=== PATIENT | female | born 1960 | race Caucasian/White ===

== ENCOUNTER 2016-12-02 22:13 | Inpatient (IN) | payer OTHER ==
[~2016-12-02] VITALS: Ht 160 cm; Wt 64.9 kg
--- NOTE | 2016-12-02 23:45 | NUR ---
ADMIT NOTE Received pt from ER to the floor with a diagnosis of ACUTE CHOLELITHIASIS. Admission process initiated. patient oriented to pain management, safety and call light-teach back done. Addendum: 12/03/16 at 0122 by Lidia Mari RN PT. IS A DIRECT ADMIT, NOT ADMITTED FROM ER.
[2016-12-02 23:51] VITALS: BP 119/72; PULSE 109; RESP 18; TEMP 97.1; O2SAT 97
[2016-12-03] VITALS: BP 138/80; PULSE 60; RESP 16; TEMP 97.8; O2SAT 92
--- NOTE | 2016-12-03 00:19 | NUR ---
CONSULTATION PAGED REASON FOR CONSULTATION:ACUTE CHOLELITHIASIS WAS CONSULT CALLED?Y PERSON WHO WAS NOTIFIED:BRAYAN CONSULTING PHYSICIAN:NIKKI HERNANDEZ CLOCK AND WATCH ASSEMBLER SPECIALTY:GI CLOCK AND WATCH ASSEMBLER PHONE NUMBER:[phone]
--- NOTE | 2016-12-03 00:24 | NUR ---
CONSULTATION PAGED REASON FOR CONSULTATION:ACUTE CHOLELITHIASIS WAS CONSULT CALLED?Y PERSON WHO WAS NOTIFIED:BRAYAN CONSULTING PHYSICIAN:JAMI PRESSLEY IC ENGINEER SPECIALTY:SURGEON IC ENGINEER PHONE NUMBER:[phone]
[2016-12-03] MEDS ORDERED: MORPHINE 4 MG/ML INJ. SYRINGE IVP PRN (00:30)
[2016-12-03] MEDS ORDERED: ACETAMINOPHEN 325 MG SUPP.RECT RC PRN (00:30)
[2016-12-03] MEDS ORDERED: INSULIN REGULAR, HUMAN 100 UNITS/ML, 10 ML VIAL (novoLIN R) SUBCUT PRN (00:30)
[2016-12-03] MEDS ORDERED: ONDANSETRON HCL 4 MG/2 ML VIAL IVP PRN (00:30)
--- NOTE | 2016-12-03 00:30 | NUR ---
ACCUCHECK BLOOD YAVNS=894, NO COVERAGE REQUIRED.
[2016-12-03] MEDS ORDERED: PIPERACILLIN/TAZOBACTAM 3.375 GM/VIAL (ZOSYN) IV ONE (00:32)
[2016-12-03] MEDS ORDERED: SIMV40TA2 PO (01:10)
[2016-12-03] MEDS ORDERED: GLU500 PO (01:10)
[2016-12-03] MEDS ORDERED: LOSA100T11 PO (01:10)
[2016-12-03] MEDS: NACL 0.9% 1,000 ML IV SCH ×3 (01:23→20:28)
[2016-12-03] MEDS: PIPERACILLIN/TAZO 3.375/DEX-IS 50 ML IV SCH ×4 (02:22→20:28)
--- NOTE | 2016-12-03 02:30 | NUR ---
RN ROUNDS PT. RESTING QUIETLY, VITAL SIGNS STABLE, NO DISTRESS NOTED, DENIES PAIN, CALL LIGHT WITHIN REACH.
--- NOTE | 2016-12-03 04:00 | NUR ---
RN ROUNDS PT. RESTING QUIETLY, VITAL SIGNS STABLE, NO DISTRESS NOTED, DENIES PAIN, CALL LIGHT WITHIN REACH.
[2016-12-03 05:06] VITALS: BP 110/61; PULSE 77; RESP 19; TEMP 98.8; O2SAT 96
--- NOTE | 2016-12-03 06:00 | NUR ---
RN ROUNDS PT. RESTING QUIETLY, VITAL SIGNS STABLE, NO DISTRESS NOTED, DENIES PAIN, CALL LIGHT WITHIN REACH.
--- NOTE | 2016-12-03 06:45 | NUR ---
CLOSING NOTES, ACCUCHECK BLOOD GIEQD=789, NO COVERAGE REQUIRED. IV ACCESS PATENT AND BENIGN. ALL ANTICIPATED NEEDS MET, KEPT COMFORTABLE.
--- NOTE | 2016-12-03 08:00 | NUR ---
Patient A/ox4, speaks [place]ian and [place]. States to have mild abdominal pain. Breathing is unlabored and even. IV on right arm, #22, infused with NS at 100ml/hr. Family at bedside. Call light in place, bed at lowest position, will continue to monitor.
--- NOTE | 2016-12-03 10:02 | NUR ---
Patient is resting, no signs of distress noted.
[2016-12-03 10:04] LABS: BASOPHILS % (AUTO) 0.3 % (0.0-2.0); EOSINOPHILS % (AUTO) 0.5 % (0.0-4.0); HEMATOCRIT 39.6 % (36-48); HEMOGLOBIN 13.3 g/dL (12.0-16.0); LYMPHOCYTES # (AUTO) 0.7 K/uL (1.0-5.5); MEAN CORPUSCULAR HEMOGLOBIN 29 pg (27-31); MEAN CORPUSCULAR HGB CONC 34 % (32-36); MEAN CORPUSCULAR VOLUME 87 fL (79.0-98.0); MONOCYTES # (AUTO) 0.5 K/uL (0.0-1.0); MONOCYTES % (AUTO) 6.1 % (1.7-9.3); NEUTROPHILS # (AUTO) 6.3 K/uL (1.8-7.7); NEUTROPHILS % (AUTO) 83.1 % (40.0-70.0); PLATELET COUNT (AUTO) 167 K/uL (130-430); RED BLOOD CELL COUNT(AUTO) 4.54 MIL/uL (4.2-6.2); RED CELL DISTRIBUTION WIDTH 12.5 % (9.0-15.0); WHITE BLOOD COUNT (AUTO) 7.5 K/uL (4.8-10.8)
[2016-12-03 10:31] LABS: CALCIUM 8.9 mg/dL (8.4-11.0); CREATININE 0.82 mg/dL (0.55-1.30); POTASSIUM 3.6 mmol/L (3.5-5.1)
[2016-12-03 10:36] LABS: ALBUMIN 3.9 g/dL (3.4-4.8); TOTAL BILIRUBIN 0.9 mg/dL (0.0-1.0); TOTAL PROTEIN, SERUM 7.4 g/dL (6.4-8.3)
[2016-12-03 11:46] VITALS: BP 139/67; PULSE 87; RESP 16; TEMP 98.3; O2SAT 99
--- NOTE | 2016-12-03 12:22 | NUR ---
Patient is resting, no c/o pain at this time. Blood sugar 134, no coverage needed.
--- NOTE | 2016-12-03 14:34 | NUR ---
PAGED DR BRIGHT FOR ORDERS. SPOKE WITH WILD
--- NOTE | 2016-12-03 14:51 | NUR ---
patient to [facility]. No signs of distress noted during transport.
--- NOTE | 2016-12-03 15:49 | NUR ---
Patient has returned from [facility]. V/S stable no signs of distress noted.
[2016-12-03] MEDS ORDERED: ACETAMINOPHEN 650 MG SUPP.RECT RC PRN (16:00)
[2016-12-03 16:43] VITALS: BP 136/73; PULSE 86; RESP 16; TEMP 98.2; O2SAT 94
--- NOTE | 2016-12-03 18:10 | NUR ---
Patient BS at 123. No coverage needed.
--- NOTE | 2016-12-03 19:30 | NUR ---
Initial Note Patient in bed at this time resting, respirations even and unlabored. No acute distress noted at this time. Denies any abdominal pain at this time. Call light in hand. Fall and safety precautions in place. Will continue to monitor.
[2016-12-03 20:00] VITALS: BP 125/72; PULSE 81; RESP 18; TEMP 97.6; O2SAT 96
--- NOTE | 2016-12-03 21:00 | NUR ---
IV RE-INSERTION: Complaining of pain to IV site. Restarted on left forearm. Successful after 1 attempts. Will observe for any signs of infiltration.
--- NOTE | 2016-12-03 22:35 | NUR ---
RN ROUNDS Patient in bed at this time resting, respirations even and unlabored. Patient denies any pain or discomfort at this time. Call light in hand. Fall and safety precautions in place. Will continue to monitor.
[2016-12-04] VITALS (7 sets, daily range): BP systolic 106–154; BP diastolic 72–86; PULSE 67–94; RESP 11–18; TEMP 96.8–98.7; O2SAT 94–100
--- NOTE | 2016-12-04 00:50 | NUR ---
RN ROUNDS Patient in bed at this time resting at this time. Patient denies any pain or discomfort at this time. Call light in hand. Fall and safety precautions in place. Will continue to monitor.
[2016-12-04] MEDS: PIPERACILLIN/TAZO 3.375/DEX-IS 50 ML IV SCH ×4 (03:26→20:26)
--- NOTE | 2016-12-04 03:37 | NUR ---
RN ROUNDS Patient in bed at this time resting with eyes closed. Respirations even and unlabored. No acute distress noted at this time. Patient in no apparent pain or discomfort at this time, no facial grimacing noted. Call light in hand. Fall and safety precautions in place. Will continue to monitor.
[2016-12-04] MEDS: NACL 0.9% 1,000 ML IV SCH ×2 (05:33→15:43)
--- NOTE | 2016-12-04 06:47 | NUR ---
Closing Note Patient in bed at this time resting, respirations even and unlabored. All due meds given, all needs met. Iv site patent with no signs or symptoms of infiltration noted. Call light in hand. Fall and safety precautions in place. Will endorse to day shift nurse.
--- NOTE | 2016-12-04 07:30 | NUR ---
Patient A/ox4, speaks Macedonian and Finnish. States to have very mild abdominal pain. NPO at this time. Breathing is unlabored and even. IV on right arm, #22, infused with NS at 100ml/hr. Family at bedside. Call light in place, bed at lowest position, will continue to monitor.
[2016-12-04 07:58] LABS: BASOPHILS % (AUTO) 0.9 % (0.0-2.0); EOSINOPHILS # (AUTO) 0.2 K/uL (0.0-0.4); EOSINOPHILS % (AUTO) 5.1 % (0.0-4.0); HEMATOCRIT 35.5 % (36-48); HEMOGLOBIN 12.2 g/dL (12.0-16.0); LYMPHOCYTES # (AUTO) 1.1 K/uL (1.0-5.5); LYMPHOCYTES % (AUTO) 22.1 % (20.5-51.5); MEAN CORPUSCULAR HEMOGLOBIN 29 pg (27-31); MEAN CORPUSCULAR HGB CONC 34 % (32-36); MEAN CORPUSCULAR VOLUME 85 fL (79.0-98.0); MONOCYTES # (AUTO) 0.6 K/uL (0.0-1.0); MONOCYTES % (AUTO) 11.7 % (1.7-9.3); NEUTROPHILS % (AUTO) 60.2 % (40.0-70.0); PLATELET COUNT (AUTO) 150 K/uL (130-430); RED BLOOD CELL COUNT(AUTO) 4.17 MIL/uL (4.2-6.2); RED CELL DISTRIBUTION WIDTH 12.5 % (9.0-15.0); WHITE BLOOD COUNT (AUTO) 4.9 K/uL (4.8-10.8)
[2016-12-04 08:28] LABS: ALBUMIN 3.3 g/dL (3.4-4.8); CALCIUM 8.8 mg/dL (8.4-11.0); CREATININE 0.63 mg/dL (0.55-1.30); POTASSIUM 3.7 mmol/L (3.5-5.1); TOTAL BILIRUBIN 0.9 mg/dL (0.0-1.0); TOTAL PROTEIN, SERUM 6.5 g/dL (6.4-8.3)
--- NOTE | 2016-12-04 10:04 | NUR ---
PATIENT IS AWAKE AND ALERT. NO APPARENT DISTRESS. RESTING COMFORTABLY IN BED. IS AT BEDSIDE. BED IN LOW POSITION, BRAKE ON, AND CALL LIGHT WITHIN REACH. WILL CONTINUE TO MONITOR.
--- NOTE | 2016-12-04 12:20 | NUR ---
Patient is resting, no signs of distress noted. Will continue to monitor.
--- NOTE | 2016-12-04 14:18 | NUR ---
Patient is at rest, no signs of distress noted.
--- NOTE | 2016-12-04 16:00 | NUR ---
Patient began eating full liquid diet. No signs of distress noted.
--- NOTE | 2016-12-04 16:05 | NUR ---
Patient ate a jello and drank OJ. No signs of distress nor discomfort noted.
--- NOTE | 2016-12-04 18:00 | NUR ---
Patient BS 141. No coverage needed.
--- NOTE | 2016-12-04 19:20 | NUR ---
Initial Note Patient in bed at this time resting, respirations even and unlabored. No acute distress noted at this time. IV site patent with no signs or symptoms of infiltration noted. Denies any abdominal pain at this time. Call light in hand. Fall and safety precautions in place. Will continue to monitor.
--- NOTE | 2016-12-04 22:00 | NUR ---
RN ROUNDS Patient in bed at this time resting, respirations even and unlabored. No acute distress noted at this time. Patient denies any pain of discomfort at this time. Patient tolerating IVF well and infusing as ordered. Call light in hand. Fall and safety precautions in place. Will continue to monitor.
--- NOTE | 2016-12-05 00:19 | NUR ---
RN ROUNDS Patient in bed at this time resting, respirations even and unlabored. Vital signs stable. Patient is aware that she is to be NPO for surgery. Denies any pain or discomfort at this time. Call light in hand. Fall and safety precautions in place. Will continue to monitor.
[2016-12-05 00:31] VITALS: BP 133/66; PULSE 76; RESP 16; TEMP 97.8; O2SAT 98
[2016-12-05] MEDS: PIPERACILLIN/TAZO 3.375/DEX-IS 50 ML IV SCH ×4 (01:32→20:29)
[2016-12-05] MEDS: NACL 0.9% 1,000 ML IV SCH ×2 (01:35→22:30)
--- NOTE | 2016-12-05 03:35 | NUR ---
RN ROUNDS Patient in bed at this time resting, respirations even and unlabored. No acute distress noted at this time. Patient denies any pain or discomfort at this time. Call light in hand. Fall and safety precautions in place. Will continue to monitor.
[2016-12-05 03:38] VITALS: BP 118/68; PULSE 66; RESP 16; TEMP 97.7; O2SAT 97
[2016-12-05 04:22] LABS: BILIRUBIN,URINE NEGATIVE (NEGATIVE); BLOOD, URINE 1+ (NEGATIVE); CLARITY/URINE CLEAR (CLEAR); COLOR,URINE YELLOW (YELLOW); GLUCOSE,URINE NEGATIVE (NEGATIVE); KETONES,URINE 2+ (NEGATIVE); LEUKOCYTE ESTERASE ,URINE NEGATIVE (NEGATIVE); NITRITE, URINE NEGATIVE (NEGATIVE); PH,URINE 5.5 (5.0-8.0); PROTEIN URINE NEGATIVE (NEGATIVE); UROBILINOGEN,URINE 0.2 (0.2-1.0)
[2016-12-05 04:40] LABS: WBC,URINE 0-3 /HPF (0-3)
[2016-12-05 04:41] LABS: BACTERIA,URINE FEW /HPF (None Seen); MUCUS,URINE None Seen /LPF (None Seen)
--- NOTE | 2016-12-05 07:20 | NUR ---
initial rounds: pt on bed resting. stable. i.v. access patent. Discussed plan of care. call light within reach. report received at bedside.
[2016-12-05 07:32] LABS: INR 0.9 (0.8-1.2); PROTHROMBIN TIME 9.3 SECS (9.5-12.5)
[2016-12-05 07:35] LABS: BASOPHILS % (AUTO) 0.8 % (0.0-2.0); EOSINOPHILS # (AUTO) 0.2 K/uL (0.0-0.4); EOSINOPHILS % (AUTO) 3.7 % (0.0-4.0); HEMATOCRIT 36.2 % (36-48); HEMOGLOBIN 12.3 g/dL (12.0-16.0); LYMPHOCYTES # (AUTO) 1.2 K/uL (1.0-5.5); LYMPHOCYTES % (AUTO) 20.1 % (20.5-51.5); MEAN CORPUSCULAR HEMOGLOBIN 30 pg (27-31); MEAN CORPUSCULAR HGB CONC 34 % (32-36); MEAN CORPUSCULAR VOLUME 87 fL (79.0-98.0); MONOCYTES # (AUTO) 0.5 K/uL (0.0-1.0); MONOCYTES % (AUTO) 8.8 % (1.7-9.3); NEUTROPHILS # (AUTO) 4.2 K/uL (1.8-7.7); NEUTROPHILS % (AUTO) 66.6 % (40.0-70.0); PLATELET COUNT (AUTO) 153 K/uL (130-430); RED BLOOD CELL COUNT(AUTO) 4.16 MIL/uL (4.2-6.2); RED CELL DISTRIBUTION WIDTH 12.3 % (9.0-15.0); WHITE BLOOD COUNT (AUTO) 6.1 K/uL (4.8-10.8)
[2016-12-05 07:51] LABS: ALBUMIN 3.4 g/dL (3.4-4.8); BILIRUBIN,DIRECT 0.2 mg/dL (0.0-0.3); CREATININE 0.53 mg/dL (0.55-1.30); POTASSIUM 3.4 mmol/L (3.5-5.1); TOTAL BILIRUBIN 0.6 mg/dL (0.0-1.0); TOTAL PROTEIN, SERUM 6.8 g/dL (6.4-8.3)
[2016-12-05 08:00] VITALS: BP 128/67; PULSE 83; RESP 16; TEMP 97.6
--- NOTE | 2016-12-05 10:22 | NUR ---
rounds: pt on bed. no distress noted. remains npo for surgery.
[2016-12-05 11:35] VITALS: BP 131/79; PULSE 74; RESP 19; TEMP 97.4; O2SAT 99
--- NOTE | 2016-12-05 11:53 | NUR ---
blood sugar: accu check 117. no insulin coverage and pt is NPO.
--- NOTE | 2016-12-05 12:17 | NUR ---
rounds: pt on bed resting. no distress noted. remains npo.
--- NOTE | 2016-12-05 12:53 | NUR ---
O.R. patient wheeled to O.R. via hospital bed by O.R. staff. for surgery.
[2016-12-05 14:00] VITALS: BP 126/76; PULSE 76; RESP 19; TEMP 96.4; O2SAT 99
[2016-12-05] MEDS ORDERED: GLYCOPYRROLATE 0.2 MG/ML VIAL ONE (14:00)
[2016-12-05] MEDS ORDERED: NEOSTIGMINE METHYLSULFATE 1 MG/ML, 10 ML VIAL ONE (14:00)
[2016-12-05] MEDS ORDERED: fentaNYL CITRATE 250 MCG/5 ML AMP ONE (14:00)
[2016-12-05] MEDS ORDERED: MORPHINE 2 MG/ML INJ. SYRINGE IVP PRN ×2 (14:00)
[2016-12-05] MEDS ORDERED: BUPIVACAINE /EPINEPHRINE/PF 0.25% 30 ML VIAL INJ ONE (14:00)
[2016-12-05] MEDS ORDERED: ROCURONIUM BROMIDE 10 MG/ML (ZEMURON) ONE (14:00)
[2016-12-05] MEDS ORDERED: DESFLURANE 15 MIN GAS INH ONE (14:00)
[2016-12-05] MEDS ORDERED: LR 1,000 ML IV.SOLN IV ONE (14:00)
[2016-12-05] MEDS ORDERED: LR 1,000 ML IV SCH (14:00)
[2016-12-05] MEDS ORDERED: MIDAZOLAM HCL 5 MG/5 ML VIAL ONE (14:00)
[2016-12-05] MEDS ORDERED: PROPOFOL 200MG/ 20ML VIAL (DIPRIVAN) IV ONE (14:00)
[2016-12-05] MEDS ORDERED: METOCLOPRAMIDE HCL 10 MG/2 ML VIAL IVP PRN (14:00)
[2016-12-05] MEDS ORDERED: ONDANSETRON HCL 4 MG/2 ML VIAL ONE (14:00)
[2016-12-05] MEDS: MORPHINE 2 MG/ML INJ. SYRINGE IVP PRN ×2 (14:50→15:05)
[2016-12-05] MEDS ORDERED: MORPHINE 4 MG/ML INJ. SYRINGE ONE (15:12)
--- NOTE | 2016-12-05 15:30 | NUR ---
Transfer from O.R. Patient sleeping. V/S taken WNL. Received report from O.R. nurse. TRINY in placed the R side of abdomen. 4 small incision with steri strips and dressing. No active bleeding. SCD in placed. Dr. Glasgow aware.
--- NOTE | 2016-12-05 16:00 | NUR ---
rounds: pt still sleeping. no distress noted. family at bedside.
--- NOTE | 2016-12-05 17:41 | NUR ---
BLOOD SUGAR: accu check done 160mg/dl. insulin coverage not given. pt still npo.
--- NOTE | 2016-12-05 19:30 | NUR ---
closing notes: pt on bed resting. stable. needs attended. TRINY intact. No active bleeding from abdominal incision. SCD in placed. call light within reach. report given at bedside.
[2016-12-05 20:00] VITALS: BP 145/77; PULSE 96; RESP 18; TEMP 97.7; O2SAT 96
--- NOTE | 2016-12-05 20:00 | NUR ---
Initial PM Note Pt is fully AAO x4. Assessment done and no acute distress noted. IVF is infusing well in LFA. Skin is warm and dry to touch. No signs or symptoms of hypoglycemia or hyperglycemia noted. Fall precautions are in place. Pt was instructed to call for assistance as needed and pt verbalized understanding. Call light is with pt and bed alarm is on. Bed is in the lowest and locked positions. Abd lap sites dressings are dry with old blood stains noted. TRINY to bulb suction is in place with small amount of bloody drainage noted.
--- NOTE | 2016-12-05 20:29 | NUR ---
Pain Medication Morphine 4mg was given IV for c/o abd incisional pain with relief.
--- NOTE | 2016-12-05 20:38 | NUR ---
Nausea Medication Zofran 4mg was given IV for c/o nausea with relief. No emesis noted.
--- NOTE | 2016-12-05 22:30 | NUR ---
Rounds Pt is resting comfortably in bed. IVF is infusing well in LFA. Call light is with pt and bed alarm is on.
--- NOTE | 2016-12-05 23:40 | NUR ---
Blood Sugar Accucheck 118. Skin remains warm and dry to touch. No c/o discomfort.
[2016-12-06 00:28] VITALS: BP 125/63; PULSE 97; RESP 18; TEMP 98.6; O2SAT 96
--- NOTE | 2016-12-06 01:00 | NUR ---
Rounds Pt is sleeping comfortably in bed and no resp distress noted.
[2016-12-06] MEDS: PIPERACILLIN/TAZO 3.375/DEX-IS 50 ML IV SCH ×4 (02:50→22:43)
--- NOTE | 2016-12-06 03:00 | NUR ---
Rounds Pt is sleeping without any distress noted. IVF is infusing well. Fall precautions are in place.
[2016-12-06 04:31] VITALS: BP 128/82; PULSE 86; RESP 18; TEMP 98.6; O2SAT 97
[2016-12-06] MEDS: NACL 0.9% 1,000 ML IV SCH ×3 (04:33→16:49)
--- NOTE | 2016-12-06 04:50 | NUR ---
Rounds Pt is resting comfortably in bed. Fall precautions are in place.
[2016-12-06 06:13] LABS: BASOPHILS % (AUTO) 0.4 % (0.0-2.0); EOSINOPHILS % (AUTO) 0.3 % (0.0-4.0); HEMATOCRIT 34.7 % (36-48); HEMOGLOBIN 11.7 g/dL (12.0-16.0); LYMPHOCYTES # (AUTO) 1.2 K/uL (1.0-5.5); LYMPHOCYTES % (AUTO) 12.8 % (20.5-51.5); MEAN CORPUSCULAR HEMOGLOBIN 29 pg (27-31); MEAN CORPUSCULAR HGB CONC 34 % (32-36); MEAN CORPUSCULAR VOLUME 87 fL (79.0-98.0); MONOCYTES # (AUTO) 0.9 K/uL (0.0-1.0); MONOCYTES % (AUTO) 9.6 % (1.7-9.3); NEUTROPHILS # (AUTO) 7.3 K/uL (1.8-7.7); NEUTROPHILS % (AUTO) 76.9 % (40.0-70.0); PLATELET COUNT (AUTO) 178 K/uL (130-430); RED BLOOD CELL COUNT(AUTO) 4.01 MIL/uL (4.2-6.2); RED CELL DISTRIBUTION WIDTH 12.5 % (9.0-15.0); WHITE BLOOD COUNT (AUTO) 9.4 K/uL (4.8-10.8)
[2016-12-06 06:18] LABS: ALBUMIN 3.2 g/dL (3.4-4.8); CALCIUM 8.6 mg/dL (8.4-11.0); CREATININE 0.47 mg/dL (0.55-1.30); POTASSIUM 3.2 mmol/L (3.5-5.1); TOTAL BILIRUBIN 0.7 mg/dL (0.0-1.0); TOTAL PROTEIN, SERUM 6.6 g/dL (6.4-8.3)
--- NOTE | 2016-12-06 06:24 | NUR ---
Closing Note Pt is awake and resting comfortably in bed. No c/o pain or discomfort at this time. IVF is infusing well in LFA. All pt's needs were attended to. No fall or injury noted this shift. Will endorse to day shift nurse. Addendum: 12/06/16 at 0632 by Sherrie Duke RN Accucheck 98 this AM and no Insulin coverage needed. Skin remains warm and dry to touch.
[2016-12-06 08:00] VITALS: BP 138/62; PULSE 62; RESP 18; TEMP 97.6; O2SAT 96
--- NOTE | 2016-12-06 08:00 | NUR ---
NOTE PT RESTING IN BED. NO SOB/RESP DISTRESS OR PAIN/DISCOMFORT WAS NOTED AT THIS TIME. 3 LAP SITES ON ABDOMEN - DSG CDI. 4TH SITE WITH TRINY DRAIN. IVF'S INFUSING WELL THROUGH LEFT HAND IV SITE. CALL LIGHT WITHIN REACH/
--- NOTE | 2016-12-06 09:00 | NUR ---
NOTE DR BRIGHT AND DR CARUSO DID ROUNDS AND ORDERS WERE GIVEN. NO NEEDS NOTED CALL LIGHT WITHIN REACH. Addendum: 12/06/16 at 1031 by Joy Maciel RN DR CARUSO DID REMOVE TRINY DRAIN ON RIGHT SIDE OF ABDOMEN.
[2016-12-06 11:48] VITALS: BP 145/76; PULSE 65; RESP 16; TEMP 97; O2SAT 97
--- NOTE | 2016-12-06 12:00 | NUR ---
NOTE PT HAS BEEN AMBULATING IN THE ROOM AND IN HALLWAY WITH BY HER SIDE. PT HAS STEADY GAIT, PAIN IN ABDOMEN FROM SURGERY PRESENT. NO SEVERE PAIN PER PT AT THIS TIME. PT AMBULATES AND GETS IN AND OOB FREQUENTLY NEEDED. NO NEEDS NOTED AT THIS TIME. CALL LIGHT WITHIN REACH.
[2016-12-06] MEDS ORDERED: POTASSIUM CHLORIDE 20 MEQ TAB.PRT.SR PO ONE (13:15)
--- NOTE | 2016-12-06 14:15 | NUR ---
NOTE PT AMBULATING IN HALLWAY WITH STEADY GAIT AT THIS TIME. DENIES ANY NEEDS AT THIS TIME. PT ABLE TO PASS A LITTLE FLATUS AND GAS PAIN IN ABDOMEN IS STILL PRESSING AT THIS TIME.
[2016-12-06 15:41] VITALS: BP 132/76; PULSE 82; RESP 19; TEMP 97.2; O2SAT 97
--- NOTE | 2016-12-06 15:54 | NUR ---
Nutrition Update Marcial Scale 18 noted Pt was admitted with cholelithiasis Diet: soft (low fiber/bland), clear liquid (two active orders) BMI: 25.5 kg/m2 RD to follow up per nutrition care standards.
--- NOTE | 2016-12-06 18:30 | NUR ---
NOTE PT RESTING IN BED. PT'S FAMILY HAS BEEN AT BEDSIDE THROUGHOUT THE SHIFT. NO SOB/RESP DISTRESS OR PAIN/DISCOMFORT NOTED AT THIS TIME. PT ENC TO SIT UP IN BS CHAIR AND AMBULATE IN ROOM OR HALLWAY TOLERATED AT THIS TIME. CALL LIGHT WITHIN REACH.
[2016-12-06 20:30] VITALS: BP 135/71; PULSE 85; RESP 18; TEMP 97.5; O2SAT 96
--- NOTE | 2016-12-06 21:12 | NUR ---
Patient awake out of bed ambulating verbally indicative , skin dry warm on room air 02 SAT 97 % chest movement symmetrical unlabored / .
[2016-12-06 21:14] VITALS: Ht 160 cm; Wt 64.9 kg
[2016-12-06] MEDS: IBUPROFEN 800 MG TABLET PO PRN (22:43)
--- NOTE | 2016-12-06 23:31 | NUR ---
MOTRIN 800 MG PO given for general pain 12/12 & helpful , resting this hour .
[2016-12-07] VITALS (8 sets, daily range): BP systolic 119–141; BP diastolic 73–83; PULSE 55–86; RESP 16–20; TEMP 97.3–98.9; O2SAT 92–98
--- NOTE | 2016-12-07 00:32 | NUR ---
Hourly Rounding patient awake alert assist as needed resting this hour / .
--- NOTE | 2016-12-07 00:33 | NUR ---
BSG @ 165 mg dl no coverage needed this hour / .
[2016-12-07] MEDS: PIPERACILLIN/TAZO 3.375/DEX-IS 50 ML IV SCH ×4 (04:03→21:11)
--- NOTE | 2016-12-07 04:46 | NUR ---
Patient resting this hour bed to low position call berumen with patient assist as needed / .
[2016-12-07] MEDS: NACL 0.9% 1,000 ML IV SCH ×2 (06:23→15:06)
[2016-12-07 06:52] LABS: ALBUMIN 3.4 g/dL (3.4-4.8); BASOPHILS % (AUTO) 0.6 % (0.0-2.0); CALCIUM 9.2 mg/dL (8.4-11.0); CREATININE 0.56 mg/dL (0.55-1.30); EOSINOPHILS # (AUTO) 0.1 K/uL (0.0-0.4); HEMATOCRIT 37.8 % (36-48); HEMOGLOBIN 12.9 g/dL (12.0-16.0); LYMPHOCYTES # (AUTO) 1.1 K/uL (1.0-5.5); LYMPHOCYTES % (AUTO) 18.6 % (20.5-51.5); MEAN CORPUSCULAR HEMOGLOBIN 30 pg (27-31); MEAN CORPUSCULAR HGB CONC 34 % (32-36); MEAN CORPUSCULAR VOLUME 87 fL (79.0-98.0); MONOCYTES # (AUTO) 0.8 K/uL (0.0-1.0); MONOCYTES % (AUTO) 12.8 % (1.7-9.3); NEUTROPHILS # (AUTO) 4.1 K/uL (1.8-7.7); PLATELET COUNT (AUTO) 193 K/uL (130-430); RED BLOOD CELL COUNT(AUTO) 4.34 MIL/uL (4.2-6.2); RED CELL DISTRIBUTION WIDTH 12.5 % (9.0-15.0); TOTAL BILIRUBIN 1.2 mg/dL (0.0-1.0); TOTAL PROTEIN, SERUM 7.2 g/dL (6.4-8.3); WHITE BLOOD COUNT (AUTO) 6.1 K/uL (4.8-10.8)
--- NOTE | 2016-12-07 08:09 | NUR ---
AM ROUNDS Patient received, alert awake and oriented x4. VSS. Patient denies pain at this time. IV site patent intact and infusing fluids as ordered. Abdominal dressings noted, CDI. Bowel sounds active within all four quadrants. Patient able to ambulate to bathroom, gait steady. Patient encouraged to call for assistance, patient verbalized understanding. Plan of care discussed, patient verbalized understanding. Safety and fall precautions in place, call light within reach. Will continue to monitor.
--- NOTE | 2016-12-07 10:14 | NUR ---
ROUNDS Patient awake sitting up in bed. Denies pain at this time. IVF infusing as ordered. No further needs. Will continue to monitor. Safety and fall precautions in place, call light within reach.
--- NOTE | 2016-12-07 12:30 | NUR ---
ROUNDS Late entry due to patient care. Patient sitting up in bed, tolerating lunch well. Denies pain at this time. Patient has no further needs. IVF infusing as ordered. Will continue to monitor. Safety and fall precautions in place.
--- NOTE | 2016-12-07 14:52 | NUR ---
ROUNDS Patient sitting in chair at bedside, denies pain at this time. No further needs. Will continue to monitor. Safety and fall precautions in place, call light within reach. Family at bedside.
[2016-12-07] MEDS ORDERED: POTASSIUM CHLORIDE 20 MEQ TAB.PRT.SR PO ONE (16:00)
--- NOTE | 2016-12-07 16:30 | NUR ---
ROUNDS Late entry due to patient care. Patient ambulated to bathroom, gait steady. Voiding without difficulty. Patient denies pain at this time. No further needs. Will continue to monitor.
--- NOTE | 2016-12-07 18:16 | NUR ---
CLOSING NOTE Patient resting in bed at this time. IVF infusing as ordered. Patient denies pain at this time. Abdominal dressing CDI. Patient tolerating dinner well. No further needs, all needs met throughout shift. Safety and fall precautions in place, call light within reach. Will endorse to next shift.
--- NOTE | 2016-12-07 18:19 | NUR ---
paged for Dr Dubois, dialed . s/w [facility].
--- NOTE | 2016-12-07 19:15 | NUR ---
change of shift.initial pt's assessment.pt.presents s/p surgery:lap cholecystetomy.iv fluids on hold.i am 2 re-establish an iv access.area tender.no c/o pain,nausea.pt.ambualtory.
--- NOTE | 2016-12-07 20:00 | NUR ---
pt.assessed.v/s assessed.values w/in normal limits.pt.was assisted 2 restroom returned 2 bed safely. call light placed w/in pt's reach.
--- NOTE | 2016-12-07 21:00 | NUR ---
pt.requested pain medication:pt.mentioned no morphine.motrin:800mg tab 1 po administered.iv access line re-established: location rt.forearm.call light w/in pt's reach.
[2016-12-07] MEDS: IBUPROFEN 800 MG TABLET PO PRN (21:14)
--- NOTE | 2016-12-07 22:00 | NUR ---
pt.assessed.pt.states motrin effective.iv fluids infusing:pt.states iv access feels better.lt.forearm iv access removed.gauze pad placed @site.no other request@this hour.
--- NOTE | 2016-12-08 | NUR ---
pt.assessed.blood glucose assessed:141mg/dl:no insulin coverage.no c/o pain.no other request@this hour. call light placed w/iin pt's reach.
[2016-12-08 00:44] VITALS: BP 132/75; PULSE 66; RESP 16; TEMP 98.4; O2SAT 97
--- NOTE | 2016-12-08 02:00 | NUR ---
pt.assessed.pt.presents quiescent affect;calm,asleep.no distress/discomfort manifested.call light w/in pt's reach.
[2016-12-08] MEDS: PIPERACILLIN/TAZO 3.375/DEX-IS 50 ML IV SCH ×3 (02:35→15:45)
--- NOTE | 2016-12-08 04:00 | NUR ---
pt.assessed.pt.assisted 2 the restroom.returned 2 the bed safely.lap cholecystectomy dsg x4 site changed. call light placed w/in pt's reach.
[2016-12-08 04:19] VITALS: BP 126/70; PULSE 60; RESP 16; TEMP 98; O2SAT 93
--- NOTE | 2016-12-08 06:00 | NUR ---
pt.assessed.pt.education:pt.taught 2 perform breathing excercises:2 avoid pna onset.blood glucose assessed: 122mg/dl.no insulin coverage.no request@this hour.
[2016-12-08 06:57] LABS: BASOPHILS # (AUTO) 0.1 K/uL (0.0-0.2); BASOPHILS % (AUTO) 0.9 % (0.0-2.0); EOSINOPHILS # (AUTO) 0.2 K/uL (0.0-0.4); EOSINOPHILS % (AUTO) 2.6 % (0.0-4.0); HEMATOCRIT 36.6 % (36-48); HEMOGLOBIN 12.4 g/dL (12.0-16.0); LYMPHOCYTES # (AUTO) 1.1 K/uL (1.0-5.5); LYMPHOCYTES % (AUTO) 16.7 % (20.5-51.5); MEAN CORPUSCULAR HEMOGLOBIN 29 pg (27-31); MEAN CORPUSCULAR HGB CONC 34 % (32-36); MEAN CORPUSCULAR VOLUME 87 fL (79.0-98.0); MONOCYTES # (AUTO) 0.7 K/uL (0.0-1.0); MONOCYTES % (AUTO) 10.5 % (1.7-9.3); NEUTROPHILS # (AUTO) 4.5 K/uL (1.8-7.7); NEUTROPHILS % (AUTO) 69.3 % (40.0-70.0); PLATELET COUNT (AUTO) 196 K/uL (130-430); RED BLOOD CELL COUNT(AUTO) 4.23 MIL/uL (4.2-6.2); WHITE BLOOD COUNT (AUTO) 6.6 K/uL (4.8-10.8)
[2016-12-08 07:19] LABS: ALBUMIN 3.2 g/dL (3.4-4.8); CALCIUM 9.2 mg/dL (8.4-11.0); CREATININE 0.61 mg/dL (0.55-1.30); POTASSIUM 3.7 mmol/L (3.5-5.1); TOTAL BILIRUBIN 1.2 mg/dL (0.0-1.0)
[2016-12-08 08:17] VITALS: BP 128/67; PULSE 100; RESP 18; TEMP 97; O2SAT 95
--- NOTE | 2016-12-08 08:18 | NUR ---
AM ROUNDS Patient received, alert awake and oriented x4. VSS. Patient denies pain at this time. IVF infusing as ordered. Abdominal dressings CDI. Bowel sounds WNL. Patient tolerating breakfast well. Patient able to ambulate to bathroom, gait steady voiding without difficulty. No further needs at this time. Plan of care discussed, patient verbalized understanding. Safety and fall precautions in place, call light within reach. Will continue to monitor.
--- NOTE | 2016-12-08 10:46 | NUR ---
ROUNDS Patient ambulating around room. Denies pain at this time. Dr. Womack at bedside. No further needs. Will continue to monitor.
--- NOTE | 2016-12-08 12:12 | NUR ---
ROUNDS Patient ambulating at this time. Denies pain. Blood glucose 151, no insulin coverage needed. Safety and fall precautions in place, call light within reach. Will continue to monitor.
[2016-12-08 12:30] VITALS: BP 136/55; PULSE 75; RESP 16; TEMP 97.6; O2SAT 96
--- NOTE | 2016-12-08 14:00 | NUR ---
ROUNDS Late entry due to patient care. Patient taken down for HIDA scan. Stable condition.
[2016-12-08 16:11] VITALS: BP 134/59; PULSE 78; RESP 17; TEMP 97.9; O2SAT 95
--- NOTE | 2016-12-08 17:58 | NUR ---
Spoke with Dr. Womack and Dr. Kwong regarding patients discharge. Both MDs cleared patient for discharge. Orders noted.
[2016-12-08 18:03] VITALS: BP 134/59; PULSE 78; RESP 17; TEMP 97.9; O2SAT 95
--- NOTE | 2016-12-08 19:05 | NUR ---
D/C Patient Patient given medication reconciliation form and D/C instructions. Exit Care provided. Patient verbalized understanding. MD discussed with patient the results and treatment provided. Ambulatory with steady gait for discharge to home. Patient in stable condition, ID band removed. IV catheter removed, intact and dressing applied, no active bleeding. Rx of Ibuprofen given. Patient educated on pain management. All belongings sent with patient.
== END 2016-12-08 19:05 | disposition home or self-care (01) | DRG 418 ==
LOC: SMU 23:45
PROVIDERS: ADMIT Internal Medicine; ATTEND Internal Medicine
PROC: 0FT44ZZ Resection of Gallbladder, Percutaneous Endoscopic Approach (ICD-10-PCS; principal; 2016-12-05 13:00)
DX: K80.00 Calculus of gallbladder with acute cholecystitis without obstruction (principal); E44.0 Moderate protein-calorie malnutrition; I10 Essential (primary) hypertension; E78.5 Hyperlipidemia, unspecified; E11.9 Type 2 diabetes mellitus without complications; Z82.49 Family history of ischemic heart disease and other diseases of the circulatory system; Z83.3 Family history of diabetes mellitus
CPT/HCPCS: 36415; 71010; 74181; 76700-TC; 78226; 80053; 80076; 81000-TC; 82150-TC; 82962; 83690-TC; 84702-TC; 85025; 85610-TC; 87081; 88304; A9537; C1727; J1815; J2250; J2270; J2405; J2543; J2704; J2710; J3010; J3490; J7030; J7060; J7120